=== PATIENT | female | born 1960 | race Caucasian/White ===

== ENCOUNTER 2017-10-18 20:15 | Emergency (ER) | payer OTHER ==
[~2017-10-18] VITALS: Ht 160 cm; Wt 99.8 kg
[~2017-10-18 20:15] MED LIST: BENTYL10 MG PO; CEFDINIR300 MG PO; FLAGYL250 MG PO; PRAVASTATIN SOD40 MG PO
--- OUTSIDE RECORDS SUMMARY | 2017-10-18 20:17 | XMS REPORT | Summary of Care ---
Author Silvia Verde M.A. Unknown Address Unknown Phone Unavailable Care Team Providers Care Residential Property Manager Name Role Phone WILIAN KATZ D.O. Unavailable Unavailable BRYON WELLS M.D. Unavailable Unavailable WILIAN POWERS Unavailable Unavailable Unavailable Unavailable Functional Status Name Dates Details Functional status health issues are not documented Status: Name Dates Details Cognitive status health issues are not documented Status: Problems Name Dates Details Nerve compression (957.9, T14.8XXA) Status: Active Flu-like symptoms (780.99, R68.89) Status: Active Influenza B (487.1, J10.1) Status: Active Hyperlipidemia (272.4, E78.5) Status: Active RUQ discomfort (789.01, R10.11) Status: Active Spasm of right side abdominal muscles (728.85, M62.838) Status: Active Edema (782.3, R60.9) Status: Active Seasonal allergic rhinitis (477.9, J30.2) Status: Active Obesity (BMI 30-39.9) (278.00, E66.9) Status: Active Persistent cough (786.2, R05) Status: Active Allergic bronchitis (493.90, J45.909) Status: Active Medications Name Dates Details Pravastatin Sodium 40 MG Oral Tablet TAKE 1 TABLET BY MOUTH EVERY DAY Quantity: 90 YEH D.O., CHEYANNE-DAYRON * Start : 21-Jul-2017 Active Aspirin 81 MG TABS * Refills: 0 Active Melatonin 5 MG Oral Tablet * Refills: 0 Active HydroCHLOROthiazide 12.5 MG Oral Tablet TAKE 1 TABLET BY MOUTH DAILYNEEDS 6 MONTH CHECK-UP * Quantity: 14 Refills: 0 YEH D.O., CHEYANNE-DAYRON * Start : 21-Aug-2017 Active PredniSONE 10 MG Oral Tablet Take 2 tablets twice a day for 7 days then 1 tablet twice a day for 7 days * Quantity: 42 Refills: 0 BRYON WELLS M.D. * Start : 05-Jun-2017 Active Promethazine-Codeine 6.25-10 MG/5ML Oral Syrup 5ml every 4 to 6 hours for severe cough * Quantity: 240 Refills: 0 BRYON WELLS M.D. * Start : 05-Jun-2017 Active ProAir HFA 108 (90 Base) MCG/ACT Inhalation Aerosol Solution INHALE 1-2 PUFFS EVERY 4-6 HOURS NEEDED AND DIRECTED. * Quantity: 1 Refills: 2 BRYON WELLS M.D. * Start : 11-Jun-2017 Active 8.5 GM Inhaler Allergies and Adverse Reactions Name Dates Details Keflex (Allergy) Status: Active Levaquin (Allergy) Status: Active Procedures Procedure Dates Details Procedures not documented Immunization Name Dates Details Tdap on: 11-Aug-2001 MMR on: 11-Aug-2001 Hepatitis A on: 11-Aug-2001 Hep B (Recombinant) on: 11-Aug-2001 Fluarix Quadrivalent 0.5 ML SUSP on: 11-May-2016 Family History Name Dates Details Family history of hypertension (V17.49, Z82.49) Status: Active Social History Name Dates Details Unknown if ever smoked Vital Signs Date Test Result Details No Known Vitals to report Results Date Description Value Details Results not documented Plan of Care Name Dates Details Planned Observations Planned Goals not documented Instructions Name Dates Details Instructions not documented Encounters Appointment; WILIAN KATZ D.O. Encounter Diagnosis: Problem not documented On: 11-Aug-2016 15:00 Appointment; WILIAN KATZ D.O. Encounter Diagnosis: Problem not documented On: 23-Sep-2016 10:00 Appointment; WILIAN KATZ D.O. Encounter Diagnosis: Problem not documented On: 08-Dec-2016 14:15 Appointment; WILIAN KATZ D.O. Encounter Diagnosis: Problem not documented On: 04-Feb-2017 8:00 Appointment; WILIAN KATZ D.O. Encounter Diagnosis: Problem not documented On: 12-Feb-2017 7:30 Appointment; BRYON WELLS M.D. Encounter Diagnosis: Problem not documented On: 05-Jun-2017 14:45 Appointment; BRYON WELLS M.D. Encounter Diagnosis: Problem not documented On: 11-Jun-2017 15:45
--- NOTE | 2017-10-18 21:18 | Diagnostic Imaging Report ---
WRIST COMPLETE LEFT Comparison: None Clinical history: Status post injury of left wrist after fall Findings: No acute fracture or dislocation. Impression: No acute bony abnormality Signed by: Dr Niya Milligan MD on 10/18/2017 9:15 PM
[2017-10-18 21:24] VITALS: BP 132/79
== END 2017-10-18 21:44 | disposition home or self-care (01) ==
LOC: ER 20:15
DX: S63.522A Sprain of radiocarpal joint of left wrist, initial encounter (principal); W01.0XXA Fall on same level from slipping, tripping and stumbling without subsequent striking against object, initial encounter; Y93.01 Activity, walking, marching and hiking; Y92.008 Other place in unspecified non-institutional (private) residence as the place of occurrence of the external cause
CPT/HCPCS: 99282

== ENCOUNTER 2021-07-21 14:08 | Emergency (ER) | payer BC, OTHER ==
[~2021-07-21] VITALS: Ht 160 cm; Wt 99.8 kg
[2021-07-21 14:53] LABS: BASOPHILS % 0.5 % (0.0-1.0); EOSINOPHILS # (AUTO) 0.1 (0.0-0.4); EOSINOPHILS % 1.6 % (0.0-6.0); HEMATOCRIT 35.3 % (34.2-44.1); HEMOGLOBIN 10.9 g/dL (12.0-16.0); LYMPHOCYTES # (AUTO) 1.2 (1.0-3.2); LYMPHOCYTES % 14.9 % (18.0-39.1); MEAN CORPUSCULAR HEMOGLOBIN 25.6 pg (28-32); MEAN CORPUSCULAR HGB CONC 30.9 g/dL (31-35); MEAN CORPUSCULAR VOLUME 83.1 fL (81-99); MONOCYTES # (AUTO) 0.6 (0.2-0.8); MONOCYTES % 7.5 % (4.4-11.3); NEUTROPHILS # (AUTO) 6.2 (2.1-6.9); NEUTROPHILS % 75.1 % (38.7-80.0); PLATELET COUNT 225 x10e3/uL (140-360); RED BLOOD COUNT 4.25 x10e6/uL (3.6-5.1); RED CELL DISTRIBUTION WIDTH 17.4 % (11.7-14.4)
[2021-07-21 15:04] LABS: ALBUMIN 3.7 g/dL (3.5-5.0); ALBUMIN/GLOBULIN RATIO 1.2 (0.8-2.0); ANION GAP 13.8 mmol/L (8-16); CALCIUM 8.7 mg/dL (8.4-10.2); CREATININE, SERUM 0.64 mg/dL (0.57-1.11); POTASSIUM 3.8 mmol/L (3.5-5.1)
[2021-07-21 15:18] LABS: CLARITY,URINE HAZY (CLEAR); COLOR,URINE YELLOW (YELLOW); LEUKOCYTE ESTERASE ,URINE SMALL (NEGATIVE); NITRITE,URINE NEGATIVE (NEGATIVE); PROTEIN,URINE DIPSTICK NEGATIVE (NEGATIVE)
[2021-07-21 15:19] LABS: KETONES,URINE NEGATIVE (NEGATIVE); URINE UROBILINOGEN 0.2 mg/dL (0.2 - 1)
[2021-07-21 15:24] LABS: BACTERIA,URINE FEW /HPF; EPITHELIAL CELLS,URINE MODERATE /LPF
[2021-07-21] MEDS ORDERED: SODIUM CHLORIDE 0.9% 50ML 50 ML ONE (17:15)
[2021-07-21] MEDS ORDERED: IOPAMIDOL 370 MG/ML 200 ML INFUS..BTL INJ ONE (17:15)
[2021-07-21 17:26] VITALS: BP 120/56
== END 2021-07-21 17:48 | disposition home or self-care (01) ==
LOC: ER 15:27
DX: R10.32 Left lower quadrant pain (principal); K57.32 Diverticulitis of large intestine without perforation or abscess without bleeding; K76.0 Fatty (change of) liver, not elsewhere classified; E78.00 Pure hypercholesterolemia, unspecified; Z98.84 Bariatric surgery status
CPT/HCPCS: 36415; 74177; 80053; 81001; 85025; 99284; Q9967

== ENCOUNTER 2025-02-05 21:58 | Emergency (ER) | payer BC ==
[~2025-02-05] VITALS: Ht 160 cm; Wt 108.9 kg
[~2025-02-05 21:58] MED LIST changes: +AMOX TR-K CLV1 EAC1 PO; +ULTRAM 50MG50 MG PO
[2025-02-05 22:00] VITALS: PULSE 85; RESP 18; TEMP 97.9
[2025-02-06 00:08] VITALS: BP 138/77; O2SAT 96
== END 2025-02-06 00:09 | disposition home or self-care (01) ==
LOC: ER 22:02
DX: S00.83XA Contusion of other part of head, initial encounter (principal); S50.02XA Contusion of left elbow, initial encounter; W10.8XXA Fall (on) (from) other stairs and steps, initial encounter; Y93.01 Activity, walking, marching and hiking; Y92.89 Other specified places as the place of occurrence of the external cause; E78.5 Hyperlipidemia, unspecified; E78.00 Pure hypercholesterolemia, unspecified; E66.01 Morbid (severe) obesity due to excess calories; Z87.19 Personal history of other diseases of the digestive system; Z98.84 Bariatric surgery status
CPT/HCPCS: 70450; 99283